=== PATIENT | male | born 1960 | race Caucasian/White ===

== ENCOUNTER 2021-01-28 14:55 | Emergency (ER) | payer BC ==
[~2021-01-28] VITALS: Ht 175.3 cm; Wt 81.6 kg
[~2021-01-28 14:55] MED LIST: LIPITOR40 MG PO; LOTREL 10-20 M1 EACH PO; PRISTIQ ER50 MG PO; SEROQUEL25 MG PO; TRILIPIX135 MG PO; XANAX XR0.5 MG PO
[2021-01-28] MEDS ORDERED: CASIRIVIMAB/IMDEVIMAB 10 ML in SODIUM CHLORIDE 0.9% 100 ML IV ONE (15:30)
[2021-01-28] MEDS ORDERED: TESSALON PERLE100 MG PO (16:00)
[2021-01-28] MEDS ORDERED: PROAIR DIGIHAL90 MCG PO (16:00)
== END 2021-01-28 16:13 | disposition home or self-care (01) ==
LOC: ER 15:02
DX: U07.1 COVID-19 (principal); R06.02 Shortness of breath; R05.9 Cough, unspecified; I10 Essential (primary) hypertension; E78.5 Hyperlipidemia, unspecified; F41.9 Anxiety disorder, unspecified
CPT/HCPCS: 99283; J7050